=== PATIENT | male | born 1960 | race Hispanic/Latino ===

== ENCOUNTER 2022-01-10 17:28 | Emergency (ER) | payer SELFPAY ==
[~2022-01-10] VITALS: Ht 177.8 cm; Wt 74.8 kg
[2022-01-10] MEDS ORDERED: ONDANSETRON HCL INJ 2MG/ML 2ML 2 MG/ML VIAL IV STA (17:40)
[2022-01-10] MEDS ORDERED: BELLADONNA ALK/PHENOBARBITAL 5 ML UDC PO ONE (17:45)
[2022-01-10] MEDS ORDERED: MAGNESIUM/ALUMINUM/SIMETHICONE 30 ML UDC PO ONE (17:45)
[2022-01-10] MEDS ORDERED: LIDOCAINE VISC 2% SOLN 15 ML UDC PO ONE (17:45)
[2022-01-10 17:54] LABS: BASOPHILS % 0.4 % (0.0-1.0); EOSINOPHILS # (AUTO) 0.1 (0.0-0.4); EOSINOPHILS % 0.7 % (0.0-6.0); HEMATOCRIT 48.7 % (38.2-49.6); HEMOGLOBIN 15.6 g/dL (14.0-18.0); LYMPHOCYTES # (AUTO) 1.8 (1.0-3.2); LYMPHOCYTES % 20.4 % (18.0-39.1); MEAN CORPUSCULAR HEMOGLOBIN 34.1 pg (28-32); MEAN CORPUSCULAR VOLUME 106.6 fL (81-99); MONOCYTES # (AUTO) 0.5 (0.2-0.8); MONOCYTES % 5.2 % (4.4-11.3); NEUTROPHILS # (AUTO) 6.5 (2.1-6.9); NEUTROPHILS % 72.9 % (38.7-80.0); PLATELET COUNT 218 x10e3/uL (140-360); RED BLOOD COUNT 4.57 x10e6/uL (4.3-5.7); RED CELL DISTRIBUTION WIDTH 12.1 % (11.7-14.4)
[2022-01-10] MEDS ORDERED: HEPARIN SOD (PORCINE) 5,000 UNIT/ML VIAL IV ONE (18:00)
[2022-01-10] MEDS ORDERED: ASPIRIN 81 MG CHEW TAB PO ONE (18:00)
[2022-01-10] MEDS: HEPARIN 25,000 UNIT 900 UNIT in DEXTROSE 5% 250ML 250 ML IV SCH ×2 (18:10→18:11)
[2022-01-10 18:14] LABS: ALBUMIN/GLOBULIN RATIO 1.1 (0.8-2.0); ANION GAP 15.3 mmol/L (8-16); CALCIUM 8.8 mg/dL (8.4-10.2); CREATININE, SERUM 1.2 mg/dL (0.72-1.25); INR 0.84; POTASSIUM 4.3 mmol/L (3.5-5.1); PROTHROMBIN TIME 12.3 seconds (11.9-14.5)
[2022-01-10 18:15] LABS: PARTIAL THROMBOPLASTIN TIME 26.5 seconds (23.8-35.5)
[2022-01-10] MEDS ORDERED: HEPARIN SOD (PORCINE) 5,000 UNIT/ML VIAL ONE (18:15)
[2022-01-10] MEDS ORDERED: ALTEPLASE 50 MG/VIAL (29 MILLION IU) IV ONE ×2 (18:15)
[2022-01-10] MEDS ORDERED: CLOPIDOGREL BISULFATE 75 MG TAB PO ONE (18:15)
[2022-01-10] MEDS ORDERED: HEPARIN 25,000 UNIT DRIP IV ONE (18:20)
[2022-01-10 18:22] LABS: CREATINE KINASE MB 3.9 ng/mL (0-5.0)
[2022-01-10] MEDS ORDERED: CLOPIDOGREL BISULFATE 75 MG TAB ONE (18:22)
[2022-01-10] MEDS ORDERED: ALTEPLASE 50 MG/VIAL (29 MILLION IU) ONE (19:10)
== END 2022-01-10 18:35 | disposition other institution (70) ==
LOC: ER 17:37
DX: R07.9 Chest pain, unspecified (principal); I21.19 ST elevation (STEMI) myocardial infarction involving other coronary artery of inferior wall; R10.13 Epigastric pain; R94.31 Abnormal electrocardiogram [ECG] [EKG]
CPT/HCPCS: 36415; 71045; 80053; 82550; 82553; 83690; 84484; 85025; 85610; 85730; 93005; 99284; J1644